=== PATIENT | male | born 2000 | race Caucasian/White ===

== ENCOUNTER 2022-05-06 10:41 | Emergency (ER) | payer MEDICAID ==
[~2022-05-06] VITALS: Ht 172.7 cm; Wt 73.0 kg
[2022-05-06] MEDS ORDERED: ACETAMINOPHEN 325MG TABLET PO ONE (11:15)
[2022-05-06] MEDS ORDERED: IBUPROFEN 400MG TABLET PO ONE (11:15)
[2022-05-06] MEDS ORDERED: KETAMINE HCL 50 MG/ML 10ML IV ONE (12:15)
[2022-05-06] MEDS ORDERED: PROPOFOL 200MG/20ML VIAL IV ONE (12:15)
[2022-05-06] MEDS ORDERED: ONDANSETRON HCL 4MG/2ML INJ IV ONE (12:15)
[2022-05-06] MEDS ORDERED: KETAMINE HCL 50 MG/ML 10ML IV NR (13:57)
[2022-05-06] MEDS ORDERED: ONDANSETRON HCL 4MG/2ML INJ IV NR (13:58)
[2022-05-06] MEDS ORDERED: PROPOFOL 200MG/20ML VIAL IV NR (13:58)
[2022-05-06] MEDS ORDERED: IBUP-2028 MT (15:42)
[2022-05-06] MEDS ORDERED: ACET-2708 MT (15:42)
[2022-05-06 17:10] VITALS: BP 128/75
== END 2022-05-06 17:10 | disposition home or self-care (01) ==
LOC: ER 10:41
DX: S53.195A Other dislocation of left ulnohumeral joint, initial encounter (principal); X58.XXXA Exposure to other specified factors, initial encounter; Y93.43 Activity, gymnastics; Y92.89 Other specified places as the place of occurrence of the external cause; Y99.8 Other external cause status
CPT/HCPCS: 24600; 73070; 73090; 99152; 99285; J2405; J2704; J3490; Z7610; A4565